=== PATIENT | female | born 1965 | race American Indian/Alaskan Native ===

== ENCOUNTER 2019-01-23 08:20 | Observation (INO) | payer OTHER ==
[2019-01-23] MEDS ORDERED: NORCO 5/325 PO PRN (08:29)
[2019-01-23] MEDS ORDERED: ZOFRAN IV PRN (08:29)
[2019-01-23] MEDS ORDERED: ATIVAN PO PRN (08:29)
[2019-01-23] MEDS ORDERED: NACL 0.9% 1000 ML 1,000 ML ONE ×2 (08:36→14:37)
[2019-01-23 08:48] LABS: Basophils % (Auto) 0.9 % (0.0-1.8); Eosinophils # (Auto) 0.1 K/mm3 (0.0-0.4); Eosinophils % (Auto) 2.5 % (0.0-4.3); Hematocrit 40.2 % (30.3-42.9); Hemoglobin 13.6 gm/dl (10.1-14.3); Lymphocytes # (Auto) 1.5 K/mm3 (1.2-5.4); Lymphocytes % (Auto) 46.8 % (13.4-35.0); Mean Corpuscular HGB Conc 34 % (30-34); Mean Corpuscular Volume 94 fl (79-97); Monocytes # (Auto) 0.2 K/mm3 (0.0-0.8); Monocytes % (Auto) 6.5 % (0.0-7.3); Platelet Count 235 K/mm3 (140-440); Red Blood Count 4.26 M/mm3 (3.65-5.03); Red Cell Distribution Width 13.5 % (13.2-15.2)
[2019-01-23 09:00] LABS: INR 0.86 (0.87-1.13)
[2019-01-23] MEDS ORDERED: NACL 0.9% 1000 ML 1,000 ML IV SCH (09:00)
[2019-01-23 09:01] LABS: Partial Thromboplastin Time 27.7 Sec. (24.2-36.6)
--- NOTE | 2019-01-23 09:06 | Short Stay Summary ---
Short Stay Documentation Date of service: 01/23/19 - History Principal diagnosis: venous hypertension secondary to venous compression H&P: obtained from office - Allergies and Medications Current Medications: Allergies Sulfa (Sulfonamide Antibiotics) Adverse Reaction (Verified 04/09/18 06:56) Itching Home Medications Medication Instructions Recorded Confirmed Last Taken Type Mv,Calcium,Min/Iron/Folic/Vitk 1 tab PO DAILY 04/09/18 01/23/19 01/22/19 History [Multi For Her Tablet] 1 B Complex 1 tab PO DAILY 01/23/19 01/23/19 01/22/19 History 1 Active Medications Acetaminophen/Hydrocodone Bitart ([place] 5/325) 1 each PO Q4H PRN PRN Reason: Pain, Moderate (4-6) Sodium Chloride (Nacl 0.9% 1000 Ml) 1,000 mls @ 42 mls/hr IV DIRECT GENIE Lorazepam (Ativan) 0.5 mg PO Q6H PRN PRN Reason: Anxiety Ondansetron HCl (Zofran) 4 mg IV Q8H PRN PRN Reason: Nausea And Vomiting - Brief post op/procedure progress note Date of procedure: 01/23/19 Pre-op diagnosis: venous compression Post-op diagnosis: same Procedure: The lateral lower extremity venogram, venoplasty and stent placement Anesthesia: MAC Surgeon: ALETHA ROSE Estimated blood loss: minimal Pathology: none Condition: stable - Disposition Condition at discharge: Good Disposition[id number] Short Stay Discharge Plan Activity: advance as tolerated Weight Bearing Status: Weight Bear as Tolerated Diet: regular Wound: keep clean and dry, per your surgeon's advice Follow up with: PRIMARY CARE, [Primary Care Provider] - 7 Days
[2019-01-23 09:14] LABS: BUN/Creatinine Ratio 22; Blood Urea Nitrogen 13 mg/dL (7-17); Calcium 9.5 mg/dL (8.4-10.2); Hemolysis Index 7
[2019-01-23] MEDS ORDERED: HEPARIN/NS 5000 UNIT/500ML(CATH LAB) 1,000 ML IR ONE (09:27)
[2019-01-23] MEDS ORDERED: HEPARIN 10,000 UNITS/10 ML ONE (09:28)
[2019-01-23] MEDS ORDERED: XYLOCAINE 2% INFILTRATI ONE (09:28)
[2019-01-23] MEDS ORDERED: TORADOL ONE ×2 (09:30→11:10)
[2019-01-23] MEDS ORDERED: VERSED IV NR (09:30)
[2019-01-23] MEDS ORDERED: ROBINUL ONE (09:43)
[2019-01-23] MEDS ORDERED: SUBLIMAZE ONE (09:43)
[2019-01-23] MEDS ORDERED: DIPRIVAN 10 MG/ML IV ONE ×3 (09:43→09:44)
[2019-01-23] MEDS ORDERED: QUELICIN ONE (09:43)
[2019-01-23] MEDS ORDERED: VERSED ONE (09:43)
[2019-01-23] MEDS ORDERED: XYLOCAINE MPF 2% ONE (09:43)
[2019-01-23] MEDS ORDERED: KETAMINE 50 MG/ML-WATER SYRING ONE (09:44)
--- NOTE | 2019-01-23 09:50 | Anesthesia Consultation ---
Anesthesia Consult and Med Hx Date of service: 01/23/19 - Airway Anesthetic Teeth Evaluation: Good ROM Head & Neck: Adequate Mental/Hyoid Distance: Adequate Mallampati Class: Class II Intubation Access Assessment: Good - Pulmonary Exam CTA: Yes - Cardiac Exam Cardiac Exam: RRR - Pre-Operative Health Status ASA Pre-Surgery Classification: ASA2 Proposed Anesthetic Plan: MAC - Pulmonary Hx Smoking: No Hx Asthma: No Hx Respiratory Symptoms: No SOB: No COPD: No Hx Pneumonia: No Hx Sleep Apnea: No - Cardiovascular System Hx Hypertension: No Hx Coronary Artery Disease: No Hx Heart Attack/AMI: No Hx Angina: No Hx Percutaneous Transluminal Coronary Angioplasty (PTCA): No Hx Cardia Arrhythmia: No Hx Pacemaker: No Hx Internal Defibrillator: No Hx Valvular Heart Disease: No Hx Heart Murmur: No Hx Peripheral Vascular Disease: Yes (iliac vein stents) - Central Nervous System Hx Psychiatric Problems: No - Gastrointestinal Hx Ulcer: No Hx Gastroesophageal Reflux Disease: No - Endocrine Hx Renal Disease: No Hx End Stage Renal Disease: No Hx Cirrhosis: No Hx Liver Disease: No Hx Insulin Dependent Diabetes: No Hx Non-Insulin Dependent Diabetes: No Hx Thyroid Disease: No Hx Hypothyroidism: No Hx Hyperthyroidism: No - Hematic Hx Anemia: No Hx Sickle Cell Disease: No - Other Systems Hx Alcohol Use: No Hx Substance Use: No Hx Cancer: No Hx Obesity: No
--- NOTE | 2019-01-23 09:50 | Anesthesia Day of Surgery ---
Anesthesia Day of Surgery - Day of Surgery Patient Examined: Yes Patient H&P Reviewed: Yes Patient is NPO: Yes
[2019-01-23] MEDS ORDERED: ANCEF/STERILE WATER 2 GM/20 ML 2 GM/20 ML SYRINGE IV ONE (10:12)
--- NOTE | 2019-01-23 11:24 | Operative Report ---
Operative Report Operative Report: Exam: Bilateral lower extremity venogram, veinoplasty with stent placement Clinical indication: Patient with a history of persistent venous hypertension secondary to extrinsic compression at the proximal and distal ends of previously placed stents. Patient with significant lower extremity swelling with exertion causing severe pain Date: 01/23/2019 Procedure: Following an explanation of the risks, benefits and alternatives; written informed consent was obtained. The patient was brought to the angiogra [facility] suite and placed in supine position on the examination table. Initial ultrasound evaluation of the legs demonstrated patent femoral veins proximally bilaterally. Following the induction of anesthesia, the patient's legs were prepped and draped in usual sterile fashion. 1% lidocaine was used for anesthesia. Under ultrasound guidance, a 7 cm 18-gauge needle was advanced into the right proximal femoral vein. A 0.035 guidewire was advanced centrally. The needle was removed and a 5 [place] sheath placed. Access to the proximal left femoral vein was obtained in a similar fashion and an additional 5 [place] sheath placed. Contrast was injected through the sheaths simultaneously which demonstrated stenosis secondary to extrinsic compression at the inferior and superior aspects of the previously placed stents. The sheaths were upsized over the guidewire's to 10 [place] sheaths bilaterally. An Omni-flush catheter was advanced over the guidewire. The Omni-flush catheter was then manipulated through the previously placed stents to document true luminal positioning. Once the omni-flush catheter was in the cava, a 0.035 guidewire was advanced through the catheter. This was done on both sides. A 16 mm x 120 mm [place] stent was advanced to the right sheath, a 16 mm x 120 mm [place]y stent was advanced through the left sheath. The stents were deployed to allow coverage of the lesion at the proximal ends of the stents with stent deployment in kissing fashion into the distal IVC. The stents were seated using 14 mm balloons secondary to waisting in the area of stenosis. Attention was then turned to the distal aspect of the previously placed stents. Straight significant stenosis is present within the external iliac veins on both sides. On the right, a 14 mm x 120 mm [place] stent was advanced through the right sheath. The stent was deployed to extend from the mid common iliac vein to the distal external iliac vein. The stent was seated using a 12 mm balloon. On the left, a 14 mm by 120 mm [place]y stent was advanced to the left sheath. Stent was deployed to extend from the mid common iliac vein to the distal external iliac vein. The stent was seated using a 12 mm balloon. Post stent deployment and venoplasty imaging demonstrated reduction of all the stenosis to less than 10% at all 4 locations. Brisk flow was present throughout the pelvis. Guidewires and sheaths were removed and hemostasis achieved using manual compression. Sterile compression dressings were applied. The patient tolerated the procedure well. There were no immediate post procedure complications. Anesthesia was provided by anesthesia services. Continuous cardiopulmonary monitoring was utilized. 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 2) Treatment of the common iliac vein lesions using bilateral kissing stents and venoplasty. Treatment of the right external iliac vein lesion using stent and venoplasty. Treatment of the left external iliac vein lesion using stent and venoplasty. Residual less than 10% stenosis at all locations with brisk flow throughout the pelvis.
--- NOTE | 2019-01-23 12:58 | Post Anesthesia Evaluation ---
- Post Anesthesia Evaluation Patient Participated: Yes Airway Patent: Yes Stable Respiratory Function: Yes Nausea/Vomiting: No Temp > 96.8F: Yes Pain Manageable: Yes Adequeate Hydration: Yes Anesthesia Complications: No
[2019-01-23] MEDS ORDERED: BENADRYL PO PRN (21:56)
--- NOTE | 2019-01-24 10:15 | Progress Note ---
Subjective Date of service: 01/24/19 Principal diagnosis: venous hypertension secondary to venous compression Interval history: s/p venogram with stent placement patient doing well access sites soft no complaints ok to d/c home Objective - Constitutional Vitals: Vital Signs - 12hr 01/24/19 01/24/19 00:57 05:49 Temperature 99.6 F 98.2 F Pulse Rate 89 65 Respiratory 18 18 Rate Blood Pressure 101/63 120/76 O2 Sat by Pulse 95 94 Oximetry - Labs CBC & Chem 7: 01/23/19 08:40 01/23/19 08:40 Medications & Allergies - Medications Allergies/Adverse Reactions: Allergies Sulfa (Sulfonamide Antibiotics) Adverse Reaction (Verified 04/09/18 06:56) Itching Home Medications: Home Medications Medication Instructions Recorded Confirmed Last Taken Type Mv,Calcium,Min/Iron/Folic/Vitk 1 tab PO DAILY 04/09/18 01/23/19 01/22/19 History [Multi For Her Tablet] 1 B Complex 1 tab PO DAILY 01/23/19 01/23/19 01/22/19 History 1 Active Medications: Generic Name Dose Route Start Last Admin Trade Name Freq PRN Reason Stop Dose Admin Acetaminophen/Hydrocodone Bitart 1 each 01/23/19 08:29 01/23/19 22:06 [place] 5/325 PO 1 each Q4H PRN Administration Pain, Moderate (4-6) Diphenhydramine HCl 25 mg 01/23/19 21:56 01/23/19 22:39 Benadryl PO 25 mg Q6H PRN Administration Itching Sodium Chloride 1,000 mls @ 42 mls/hr 01/23/19 09:00 01/23/19 14:42 Nacl 0.9% 1000 Ml IV 42 mls/hr DIRECT GENIE Administration Lorazepam 0.5 mg 01/23/19 08:29 Ativan PO Q6H PRN Anxiety Ondansetron HCl 4 mg 01/23/19 08:29 Zofran IV Q8H PRN Nausea And Vomiting
[2019-01-24 12:18] VITALS: BP 128/80
== END 2019-01-24 13:25 | disposition short-term general hospital (02) ==
LOC: CATH 08:20 → 3A 08:29
PROVIDERS: ADMIT Radiology Diagnostic Radiology; ATTEND Radiology Diagnostic Radiology
DX: G89.18 Other acute postprocedural pain (principal); I87.1 Compression of vein; M54.5 Low back pain; M79.605 Pain in left leg; M79.604 Pain in right leg
CPT/HCPCS: 36415; 37238; 37239; 75822; 76937; 80048; 85025; 85610; 85730; 96374; C1725; C1769; C1876; C1894; G0378; J0330; J0690; J1644; J1885; J2250; J2704; J3010; J7030; Q9967